=== PATIENT | male | born 1945 | race Caucasian/White ===

== ENCOUNTER 2017-01-01 06:56 | Day surgery (SDC) | payer MEDICARE ==
[2017-01-01] MEDS ORDERED: Lactated Ringers 1,000 ML IV SCH (07:30)
[2017-01-01] MEDS ORDERED: fentaNYL 100 MCG/2 ML SDV ONE (08:03)
[2017-01-01] MEDS ORDERED: Midazolam 1 MG/ML 2 ML SDV ONE (08:03)
[2017-01-01] MEDS ORDERED: Propofol 200 MG/20 ML SDV ONE (08:03)
[2017-01-01 10:45] VITALS: BP 136/63
--- NOTE | 2017-01-01 15:01 | OR ---
DATE OF PROCEDURE: 01/01/2017 PREOPERATIVE DIAGNOSIS: Colon cancer screening. POSTOPERATIVE DIAGNOSIS: Unremarkable colonoscopy. PROCEDURE: Colonoscopy to the cecum. ANESTHESIA: IV anesthesia with monitored anesthesia care. INDICATION: This 71-year-old white male is referred for a colonoscopy for colon cancer screening. He says his last colonoscopic exam was done 11 years ago. I counseled him for the procedure including risks and alternatives, and he gave his informed consent to proceed. DESCRIPTION OF PROCEDURE: The patient was placed in the left lateral decubitus position. IV anesthesia was administered by the Anesthesia Service. Time-out was held. A rectal exam was performed, which was unremarkable. The flexible video Olympus colonoscope was introduced through his anus, up his rectum, and out his colon all way to the cecum. To accomplish this, we did apply some abdominal compression. Once the cecum was reached, the scope was slowly withdrawn, examining the mucosa throughout. No mucosal abnormalities were noted. The scope was retroflexed in the rectum with the distal rectum appearing unremarkable. The scope was straightened and removed. He tolerated the procedure well. Keon Morton MD /[id number]
== END 2017-01-01 10:57 | disposition home or self-care (01) ==
LOC: JP.SDS 06:56
PROVIDERS: ATTEND Surgery
DX: Z12.11 Encounter for screening for malignant neoplasm of colon (principal)
CPT/HCPCS: 45378; J2250; J2704; J3010; J7120

== ENCOUNTER 2018-01-14 09:05 | Day surgery (SDC) | payer MEDICARE ==
[~2018-01-14 09:05] MED LIST: Bacitracin Oint 1 GM U/D Packet ONE
[2018-01-14] MEDS ORDERED: fentaNYL 100 MCG/2 ML SDV ONE (09:34)
[2018-01-14] MEDS ORDERED: Propofol 200 MG/20 ML SDV ONE (09:34)
[2018-01-14] MEDS ORDERED: Midazolam 1 MG/ML 2 ML SDV ONE (09:34)
[2018-01-14] MEDS: Dextrose 5%-Lactated Ringers 1,000 ML IV SCH (09:55)
[2018-01-14] MEDS: ceFAZolin 2 GM in Premix Bag 1 BAG IV ONE (11:33)
[2018-01-14] MEDS: Lidocaine 1% with EPINEPHrine 1:100,000 50 ML MDV ONE (11:55)
[2018-01-14] MEDS: Bupivacaine 0.5% 50 ML MDV ONE (11:55)
[2018-01-14 13:22] VITALS: BP 122/69
--- NOTE | 2018-01-21 12:08 | OR ---
DATE OF PROCEDURE: 01/14/2018 PREOPERATIVE DIAGNOSES: 1. 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 2. Probable atypical keratosis, right catholic. OPERATIVE PROCEDURE: 1. Excision of probable squamous cell carcinoma, right catholic, with layered closure (54006, 58081). 2. Excision of probable atypical keratosis, right catholic, with layered closure (66920, 63771). ANESTHESIA: Local plus IV sedation. INDICATION FOR PROCEDURE: This is a 72-year-old presenting with two lesions in the right catholic. One of these is somewhat anterior to the other. The more anterior of the lesions, has some ulceration with findings highly suggestive of a squamous cell carcinoma. The smaller more posterior lesion is most likely more of an atypical keratosis. The plan is to proceed with excision of both of these. Potential risks of the procedure including bleeding, infection, possible recurrence of the lesions, possible positive margins that might require re-excision were gone over, and the patient wishes to proceed. DETAILS OF PROCEDURE: The patient was taken to the operating room and placed in a supine position. IV sedation was administered, after which the right catholic and surrounding areas were prepped and draped. Both areas were then anesthetized with 1% lidocaine mixed with Marcaine. Initially, the more anterior lesion was excised. This was excised with a margin of normal tissue around it, to provide adequate margins. The lesion length plus margin in this case was 3.5 cm. The incision was then closed with layers of 5-0 Vicryl stitch deep and then 5-0 Prolene skin stitch. The incision length in this case was 4.5 cm. Attention was then taken to the more posterior lesion. A semi-elliptical incision was made, and this measured 1.3 cm in terms of lesion plus margin and it had a closure as per the more anterior lesion, with an incision length of 1.8 cm. Bacitracin was applied. The patient was taken to the recovery room in a satisfactory condition. Gwyn Rodriguez MD /[id number]
== END 2018-01-14 13:50 | disposition home or self-care (01) ==
LOC: JP.SDS 09:05
PROVIDERS: ATTEND Surgery
DX: C44.329 Squamous cell carcinoma of skin of other parts of face (principal); D23.39 Other benign neoplasm of skin of other parts of face; E11.9 Type 2 diabetes mellitus without complications
CPT/HCPCS: 11442; 11644; 12053; 88305; J0690; J2250; J2704; J3010; J3490; J7042

== ENCOUNTER 2018-09-01 06:25 | Day surgery (SDC) | payer MEDICARE ==
[2018-09-01] MEDS ORDERED: Sodium Tetradecyl Sulfate 1% 20 MG/2 ML SDV ONE (06:44)
[2018-09-01] MEDS ORDERED: Lidocaine 1% with EPINEPHrine 1:100,000 50 ML MDV ONE (06:44)
[2018-09-01] MEDS ORDERED: Sodium Chloride 0.9% 10 ML ONE (06:44)
[2018-09-01] MEDS ORDERED: Sodium Chloride 0.9% 1,000 ML IV SCH (07:00)
[2018-09-01] MEDS ORDERED: Propofol 200 MG/20 ML SDV ONE (07:23)
[2018-09-01] MEDS ORDERED: fentaNYL 100 MCG/2 ML SDV ONE (07:24)
[2018-09-01] MEDS ORDERED: Midazolam 1 MG/ML 2 ML SDV ONE (07:24)
[2018-09-01] MEDS ORDERED: Lidocaine 1% w/EPINEPHrine 50 ML, Sodium Bicarbonate 5 MEQ in Sodium Chloride 0.9% 950 ML INJECT SCH (07:45)
[2018-09-01] MEDS ORDERED: Sodium Chloride 0.9% 10 ML SDV FLUSH ONE (08:16)
[2018-09-01 09:33] VITALS: BP 131/68
--- NOTE | 2018-09-02 08:10 | OR ---
DATE OF PROCEDURE: 09/01/2018 PROCEDURES: 1. Radiofrequency ablation of left greater saphenous vein. 2. Sclerotherapy of left leg, multiple. 3. Sclerotherapy of right leg, multiple. 4. Compression wrap to left leg, two stages, 20 mmHg pressure (81710). 5. Compression wrap to right leg, two stages, 20 mmHg pressure. PREOPERATIVE DIAGNOSES: 1. Venous insufficiency with inflammation and pain. 2. Lipodermatosclerosis. POSTOPERATIVE DIAGNOSES: 1. Venous insufficiency with inflammation and pain. 2. Lipodermatosclerosis. SURGEON: Eliud Steele MD RISKS: Risks, benefits, alternatives, and limitations including, but not limited to infection, bleeding, and perforation were explained to the patient, who wished to proceed. We also discussed DVT formation, chronic wounds, chronic pain, pigmentation, and other risks not listed here. PROCEDURE IN DETAIL: The patient was placed in supine position. The left LSV was addressed first. Due to its small size and tortuosity, this was not able to be radiofrequency ablated today, nor was the right LSV. Attention was then turned to the left greater saphenous vein, which also showed significant tortuosity. However, at the superior part, the skin was able to be anesthetized with lidocaine. A ricky was created in the skin and a stylet was able to be introduced. The tumescent fluid was injected in a 1-cm jacket around this, and the proximal aspect was able to be ablated without difficulty. Direct pressure was held for 10 minutes. Sclerotherapy was then performed of left and right legs using 0.33% sodium tetradecyl, 5 on the right and 6 on the left. Two-layer two-stage compression wrapping was then performed [id number] gradient. The patient tolerated the procedure well. Eliud Steele MD /[id number]
== END 2018-09-01 09:55 | disposition home or self-care (01) ==
LOC: JP.SDS 06:25
PROVIDERS: ATTEND Surgery
DX: I83.12 Varicose veins of left lower extremity with inflammation (principal); I83.11 Varicose veins of right lower extremity with inflammation; E03.9 Hypothyroidism, unspecified; E10.21 Type 1 diabetes mellitus with diabetic nephropathy; E10.39 Type 1 diabetes mellitus with other diabetic ophthalmic complication; H42 Glaucoma in diseases classified elsewhere; M19.90 Unspecified osteoarthritis, unspecified site; Z87.891 Personal history of nicotine dependence; Z79.82 Long term (current) use of aspirin; Z79.899 Other long term (current) drug therapy
CPT/HCPCS: 36470; 36475; J1642; J2250; J2704; J3010; J7030; J3490

== ENCOUNTER 2020-09-06 07:16 | Day surgery (SDC) | payer MEDICARE ==
[~2020-09-06 07:16] MED LIST changes: +Bupivacaine 0.5% 50 ML MDV ONE; +Lidocaine 1% with EPINEPHrine 1:100,000 50 ML MDV ONE; +Propofol 200 MG/20 ML SDV ONE; +fentaNYL 100 MCG/2 ML SDV ONE
[2020-09-06] MEDS ORDERED: Dextrose 5%-Lactated Ringers 1,000 ML IV SCH (08:45)
[2020-09-06] MEDS ORDERED: Linezolid 600 MG in Premix Bag 1 BAG IV ONE (09:00)
[2020-09-06 10:52] VITALS: BP 130/73; PULSE 55
--- NOTE | 2020-09-22 13:00 | OR ---
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 OPERATIVE PROCEDURE: Wide re-excision of melanoma in front of left ear ([id number], 55612). ANESTHESIA: Local plus IV sedation. INDICATION FOR PROCEDURE: The patient is status post excision of a nodular lesion in front of the left ear. This came back showing, amongst other pathology, a 0.3 mm depth invasive melanoma. Given this, he is to undergo a 1 cm margin re-excision. Potential risks including bleeding, infection, possible local or distant recurrence of the tumor as well as possible involved margins on the final pathology that might require a secondary re-excision were gone over, and the patient and wished to proceed. DETAILS OF PROCEDURE: The patient was taken to the operating room and placed in a supine position with the head turned toward the right. The area around the previous excision site in front of the left ear was then prepped and draped and anesthetized with 1% lidocaine mixed with Marcaine. 1 cm rogers were placed, maintaining at least 1 cm margin from all components of the previous incision, and an elliptical incision maintaining that 1 cm margin in all dimensions was made and carried down through the skin and subcutaneous tissue down to the level of underlying fascia. The deep margin appeared to be clean, and care was taken to avoid going deeper than what might result in injury to the facial nerve and/or its branches. The lesion was removed, the anterior aspect of the incision marked with a suture, and specimen delivered from the field. The deeper soft tissue was then approximated with some 4-0 Vicryl stitch and the skin with a 5-0 Prolene skin stitch. Both incision length, and by definition, lesion plus margin lengths were 6 cm. Gwyn Rodriguez MD /[id number]
== END 2020-09-06 11:15 | disposition home or self-care (01) ==
LOC: JP.SDS 07:16
PROVIDERS: ATTEND Surgery
DX: C43.22 Malignant melanoma of left ear and external auricular canal (principal); E10.9 Type 1 diabetes mellitus without complications; E03.9 Hypothyroidism, unspecified
CPT/HCPCS: 11646; 12053; 88305; 88341; 88342; 88360; J2020; J2704; J3010; J3490; J7121

== ENCOUNTER 2024-12-10 12:56 | Emergency (ER) | payer MEDICARE ==
[2024-12-10 14:55] LABS: BASOPHILS ABSOLUTE AUTO 0.04 K/uL (0.00-0.10); BASOPHILS PERCENT AUTO 0.7 % (0.1-1.3); EOSINOPHILS ABSOLUTE AUTO 0.06 K/uL (0.00-0.40); EOSINOPHILS PERCENT AUTO 1.0 % (0.0-5.4); IMMATURE GRAN ABSOLUTE AUTO 0.04 K/uL (0.00-0.23); IMMATURE GRAN PERCENT AUTO 0.7 % (0.0-0.7); LYMPHOCYTES ABSOLUTE AUTO 0.73 K/uL (0.8-3.3); LYMPHOCYTES PERCENT AUTO 11.9 % (11.4-47.7); MONOCYTES ABSOLUTE AUTO 0.91 K/uL (0.20-0.90); MONOCYTES PERCENT AUTO 14.9 % (3.3-12.6); NEUTROPHILS ABSOLUTE AUTO 4.34 K/uL (1.0-7.6); NEUTROPHILS PERCENT AUTO 70.8 % (40.0-78.1); PLATELET COUNT,PLT 258 K/uL (130-375); RED BLOOD CELL COUNT 3.66 M/uL (4.14-5.76); WHITE BLOOD CELL COUNT,WBC 6.1 K/uL (3.2-11.0)
[2024-12-10 15:16] LABS: A/G RATIO 1.1 (1.2-2.2); ALANINE AMINOTRANSFERASE,ALT 35 U/L (12-78); ASPARTATE AMNIOTRANSFERASE,AST 23 U/L (15-37); BILIRUBIN TOTAL 0.9 mg/dL (0.2-1.0); BLOOD UREA NITROGEN,BUN 18 mg/dL (7-18); CARBON DIOXIDE,CO2 33 mmol/L (21-32); CHLORIDE,CL 93 mmol/L (100-108); CREATININE 0.9 mg/dL (0.8-1.3); EST CRCL DRUG DOSING (CG) 65.46 mL/min; ESTIMATED GFR 86 mL/min (>60); GLUCOSE RANDOM 256 mg/dL (74-106); POTASSIUM,K 3.6 mmol/L (3.6-5.2); PROTEIN TOTAL,TP 6.8 g/dL (6.4-8.2); SODIUM,NA 129 mmol/L (140-148)
[2024-12-10] MEDS: Iopamidol 612 MG/ML 100 ML Bottle IV ONE (16:07)
[2024-12-10] MEDS: Sodium Chloride 0.9% 10 ML Syringe FLUSH ONE (16:08)
[2024-12-10 16:15] LABS: APPEARANCE,URINE CLEAR (CLEAR); GLUCOSE,URINE 250 mg/dL (NEGATIVE); OCCULT BLOOD,URINE NEGATIVE (NEGATIVE)
[2024-12-10 16:26] LABS: SQUAMOUS EPITHELIAL CELLS,UR NOT SEEN /HPF; UROTHELIAL CELLS,URINE NOT SEEN /HPF
[2024-12-10 17:46] VITALS: BP 178/87; PULSE 70
== END 2024-12-10 18:30 | disposition home or self-care (01) ==
LOC: JP.ED 12:56
DX: R33.9 Retention of urine, unspecified (principal); E10.40 Type 1 diabetes mellitus with diabetic neuropathy, unspecified; Z79.82 Long term (current) use of aspirin; Z79.899 Other long term (current) drug therapy; Z79.4 Long term (current) use of insulin; Z79.890 Hormone replacement therapy
CPT/HCPCS: 36415; 51702; 51798; 74177; 80053; 81001; 85025; 99284; Q9967

== ENCOUNTER 2024-12-13 16:36 | Emergency (ER) | payer MEDICARE ==
[2024-12-13 17:33] LABS: BASOPHILS ABSOLUTE AUTO 0.05 K/uL (0.00-0.10); BASOPHILS PERCENT AUTO 0.5 % (0.1-1.3); EOSINOPHILS ABSOLUTE AUTO 0.06 K/uL (0.00-0.40); EOSINOPHILS PERCENT AUTO 0.6 % (0.0-5.4); IMMATURE GRAN ABSOLUTE AUTO 0.10 K/uL (0.00-0.23); IMMATURE GRAN PERCENT AUTO 1.0 % (0.0-0.7); LYMPHOCYTES ABSOLUTE AUTO 0.56 K/uL (0.8-3.3); LYMPHOCYTES PERCENT AUTO 5.5 % (11.4-47.7); MONOCYTES ABSOLUTE AUTO 1.14 K/uL (0.20-0.90); MONOCYTES PERCENT AUTO 11.3 % (3.3-12.6); NEUTROPHILS ABSOLUTE AUTO 8.22 K/uL (1.0-7.6); NEUTROPHILS PERCENT AUTO 81.1 % (40.0-78.1); PLATELET COUNT,PLT 269 K/uL (130-375); RED BLOOD CELL COUNT 3.50 M/uL (4.14-5.76); WHITE BLOOD CELL COUNT,WBC 10.1 K/uL (3.2-11.0)
[2024-12-13 17:53] LABS: A/G RATIO 1.1 (1.2-2.2); ALANINE AMINOTRANSFERASE,ALT 29 U/L (12-78); ASPARTATE AMNIOTRANSFERASE,AST 18 U/L (15-37); BILIRUBIN TOTAL 1.2 mg/dL (0.2-1.0); BLOOD UREA NITROGEN,BUN 11 mg/dL (7-18); CARBON DIOXIDE,CO2 28 mmol/L (21-32); CHLORIDE,CL 86 mmol/L (100-108); CREATININE 0.9 mg/dL (0.8-1.3); EST CRCL DRUG DOSING (CG) 65.46 mL/min; ESTIMATED GFR 86 mL/min (>60); GLUCOSE RANDOM 234 mg/dL (74-106); POTASSIUM,K 4.3 mmol/L (3.6-5.2); PROTEIN TOTAL,TP 6.8 g/dL (6.4-8.2); SODIUM,NA 122 mmol/L (140-148)
[2024-12-13] MEDS: Magnesium Citrate Solution 296 ML Bottle PO ONE (18:37)
[2024-12-13] MEDS: Na Phos,M-B/Na Phos,DI-B 60 ML, Mineral Oil 50 ML, Docusate Sodium 400 MG, Magnesium Ci... RECTAL ONE (20:56)
[2024-12-13 20:58] VITALS: BP 137/70; PULSE 86
[2024-12-13] MEDS: Magnesium Citrate Solution 296 ML Bottle ONE (21:33)
== END 2024-12-13 22:06 | disposition home or self-care (01) ==
LOC: JP.ED 16:36
DX: K59.04 Chronic idiopathic constipation (principal); E10.9 Type 1 diabetes mellitus without complications; Z79.82 Long term (current) use of aspirin; Z79.4 Long term (current) use of insulin; Z79.890 Hormone replacement therapy; Z79.899 Other long term (current) drug therapy; Z87.891 Personal history of nicotine dependence; Z90.49 Acquired absence of other specified parts of digestive tract
CPT/HCPCS: 36415; 72100; 74019; 80053; 82947; 84443; 85025; 86140; 99283; A9270

== ENCOUNTER 2024-12-16 22:15 | Inpatient (IN) | payer MEDICARE ==
[2024-12-16 23:11] LABS: BASOPHILS ABSOLUTE AUTO 0.05 K/uL (0.00-0.10); BASOPHILS PERCENT AUTO 0.3 % (0.1-1.3); EOSINOPHILS ABSOLUTE AUTO 0.00 K/uL (0.00-0.40); EOSINOPHILS PERCENT AUTO 0.0 % (0.0-5.4); IMMATURE GRAN ABSOLUTE AUTO 0.15 K/uL (0.00-0.23); IMMATURE GRAN PERCENT AUTO 0.8 % (0.0-0.7); LYMPHOCYTES ABSOLUTE AUTO 0.18 K/uL (0.8-3.3); LYMPHOCYTES PERCENT AUTO 0.9 % (11.4-47.7); MONOCYTES ABSOLUTE AUTO 1.79 K/uL (0.20-0.90); MONOCYTES PERCENT AUTO 9.4 % (3.3-12.6); NEUTROPHILS ABSOLUTE AUTO 16.88 K/uL (1.0-7.6); NEUTROPHILS PERCENT AUTO 88.6 % (40.0-78.1); PLATELET COUNT,PLT 292 K/uL (130-375); RED BLOOD CELL COUNT 3.48 M/uL (4.14-5.76); WHITE BLOOD CELL COUNT,WBC 19.1 K/uL (3.2-11.0)
[2024-12-16 23:22] LABS: APPEARANCE,URINE CLOUDY (CLEAR); GLUCOSE,URINE 500 mg/dL (NEGATIVE); OCCULT BLOOD,URINE MODERATE (NEGATIVE)
[2024-12-16 23:23] LABS: SQUAMOUS EPITHELIAL CELLS,UR NOT SEEN /HPF; UROTHELIAL CELLS,URINE NOT SEEN /HPF
[2024-12-16 23:32] LABS: A/G RATIO 0.9 (1.2-2.2); ALANINE AMINOTRANSFERASE,ALT 27 U/L (12-78); ASPARTATE AMNIOTRANSFERASE,AST 16 U/L (15-37); BILIRUBIN TOTAL 1.2 mg/dL (0.2-1.0); BLOOD UREA NITROGEN,BUN 12 mg/dL (7-18); CARBON DIOXIDE,CO2 28 mmol/L (21-32); CHLORIDE,CL 87 mmol/L (100-108); CREATININE 1.0 mg/dL (0.8-1.3); EST CRCL DRUG DOSING (CG) 58.92 mL/min; ESTIMATED GFR 76 mL/min (>60); GLUCOSE RANDOM 353 mg/dL (74-106); POTASSIUM,K 4.1 mmol/L (3.6-5.2); PROTEIN TOTAL,TP 6.8 g/dL (6.4-8.2); SODIUM,NA 123 mmol/L (140-148)
[2024-12-17] MEDS: Lidocaine 1% 2 ML ONE (00:22)
[2024-12-17] MEDS: Water For Injection, Sterile 20 ML ONE (00:24)
[2024-12-17] MEDS ORDERED: Ondansetron 4 MG Tab.DIS PO PRN (04:47)
[2024-12-17] MEDS ORDERED: 50% Dextrose in Water 50 ML Syringe IVPUSH PRN (04:47)
[2024-12-17] MEDS ORDERED: Insulin Lispro 100 Unit/ML 3 ML KwikPen SUBCUT SCH ×2 (04:47→08:00)
[2024-12-17 05:56] LABS: PLATELET COUNT,PLT 327.0 K/uL (130-375); RED BLOOD CELL COUNT 3.81 M/uL (4.14-5.76); WHITE BLOOD CELL COUNT,WBC 18.7 K/uL (3.2-11.0)
[2024-12-17 06:15] LABS: BLOOD UREA NITROGEN,BUN 11.0 mg/dL (7-18); CARBON DIOXIDE,CO2 27.0 mmol/L (21-32); CHLORIDE,CL 91.0 mmol/L (100-108); CREATININE 1.0 mg/dL (0.8-1.3); EST CRCL DRUG DOSING (CG) 58.92 mL/min; ESTIMATED GFR 76.0 mL/min (>60); GLUCOSE RANDOM 346.0 mg/dL (74-106); POTASSIUM,K 5.0 mmol/L (3.6-5.2); SODIUM,NA 128.0 mmol/L (140-148)
[2024-12-17] MEDS: Insulin Lispro 100 Unit/ML 3 ML KwikPen SUBCUT SCH ×2 (08:13→17:04)
[2024-12-17] MEDS: Insulin Glargine,Human Rec. Analog 100 Units/ML 3 ML Pen SUBCUT SCH (21:10)
[2024-12-18 05:44] LABS: PLATELET COUNT,PLT 288.0 K/uL (130-375); RED BLOOD CELL COUNT 3.37 M/uL (4.14-5.76); WHITE BLOOD CELL COUNT,WBC 16.3 K/uL (3.2-11.0)
[2024-12-18 06:01] LABS: BLOOD UREA NITROGEN,BUN 18.0 mg/dL (7-18); CARBON DIOXIDE,CO2 29.0 mmol/L (21-32); CHLORIDE,CL 95.0 mmol/L (100-108); CREATININE 0.9 mg/dL (0.8-1.3); EST CRCL DRUG DOSING (CG) 65.46 mL/min; ESTIMATED GFR 86.0 mL/min (>60); GLUCOSE RANDOM 222.0 mg/dL (74-106); POTASSIUM,K 4.0 mmol/L (3.6-5.2); SODIUM,NA 131.0 mmol/L (140-148)
[2024-12-18 11:37] VITALS: BP 136/76; PULSE 87
== END 2024-12-18 14:05 | disposition home or self-care (01) | DRG 690 ==
LOC: JP.ED 22:15 → JP.ICU 12-17 03:59
PROVIDERS: ADMIT Internal Medicine; ATTEND Student in an Organized Health Care Education/Training Program
DX: N39.0 Urinary tract infection, site not specified (principal); E87.1 Hypo-osmolality and hyponatremia; H40.9 Unspecified glaucoma; H54.7 Unspecified visual loss; E03.9 Hypothyroidism, unspecified; E86.0 Dehydration; M19.90 Unspecified osteoarthritis, unspecified site; E11.40 Type 2 diabetes mellitus with diabetic neuropathy, unspecified; Z98.890 Other specified postprocedural states; Z90.49 Acquired absence of other specified parts of digestive tract; Z79.4 Long term (current) use of insulin; Z79.899 Other long term (current) drug therapy; Z98.49 Cataract extraction status, unspecified eye; Z79.82 Long term (current) use of aspirin; Z87.891 Personal history of nicotine dependence
CPT/HCPCS: 36415; 51701; 71046; 71046-26; 80048; 80053; 81001; 82947; 83605; 84484; 85025; 85027; 87040; 87086; 87088; 87186; 93005; 96360; 96372; 99222; 99232; 99238; 99285-25; A9270-GY; C1758; J0696; J1815-GY; J2003; J2470; J7030

== ENCOUNTER 2024-12-22 08:06 | Emergency (ER) | payer MEDICARE ==
[2024-12-22 09:06] LABS: BASOPHILS ABSOLUTE AUTO 0.09 K/uL (0.00-0.10); BASOPHILS PERCENT AUTO 1.1 % (0.1-1.3); EOSINOPHILS ABSOLUTE AUTO 0.05 K/uL (0.00-0.40); EOSINOPHILS PERCENT AUTO 0.6 % (0.0-5.4); IMMATURE GRAN ABSOLUTE AUTO 0.32 K/uL (0.00-0.23); IMMATURE GRAN PERCENT AUTO 3.8 % (0.0-0.7); LYMPHOCYTES ABSOLUTE AUTO 0.59 K/uL (0.8-3.3); LYMPHOCYTES PERCENT AUTO 7.0 % (11.4-47.7); MONOCYTES ABSOLUTE AUTO 0.91 K/uL (0.20-0.90); MONOCYTES PERCENT AUTO 10.8 % (3.3-12.6); NEUTROPHILS ABSOLUTE AUTO 6.50 K/uL (1.0-7.6); NEUTROPHILS PERCENT AUTO 76.7 % (40.0-78.1); PLATELET COUNT,PLT 416 K/uL (130-375); RED BLOOD CELL COUNT 3.61 M/uL (4.14-5.76); WHITE BLOOD CELL COUNT,WBC 8.5 K/uL (3.2-11.0)
[2024-12-22 09:15] LABS: APPEARANCE,URINE CLEAR (CLEAR); GLUCOSE,URINE 500 mg/dL (NEGATIVE); OCCULT BLOOD,URINE TRACE-INTACT (NEGATIVE)
[2024-12-22 09:30] LABS: A/G RATIO 0.9 (1.2-2.2); ALANINE AMINOTRANSFERASE,ALT 31 U/L (12-78); ASPARTATE AMNIOTRANSFERASE,AST 15 U/L (15-37); BILIRUBIN TOTAL 0.8 mg/dL (0.2-1.0); BLOOD UREA NITROGEN,BUN 11 mg/dL (7-18); CARBON DIOXIDE,CO2 30 mmol/L (21-32); CHLORIDE,CL 87 mmol/L (100-108); CREATININE 0.8 mg/dL (0.8-1.3); EST CRCL DRUG DOSING (CG) 73.65 mL/min; ESTIMATED GFR 89 mL/min (>60); GLUCOSE RANDOM 349 mg/dL (74-106); POTASSIUM,K 4.4 mmol/L (3.6-5.2); PROTEIN TOTAL,TP 7.4 g/dL (6.4-8.2); SODIUM,NA 124 mmol/L (140-148)
[2024-12-22 09:30] LABS: SQUAMOUS EPITHELIAL CELLS,UR NOT SEEN /HPF; UROTHELIAL CELLS,URINE NOT SEEN /HPF
[2024-12-22] MEDS: Insulin Regular, Human 100 Units/ML 10 ML Vial IVPUSH ONE (09:53)
[2024-12-22 10:04] LABS: PHOSPHORUS 3.1 mg/dL (2.5-4.9)
[2024-12-22 10:07] LABS: BASE EXCESS ARTERIAL 1.9 mm/L; BICARBONATE,ARTERIAL 25.1 mmol/L (22.0-26.0); O2 SATURATION ARTERIAL 97.2 % (95.0-98.0); OXYHEMOGLOBIN 94.9 %; PCO2 ARTERIAL 35.9 mmHg (35.0-42.0); PO2 ARTERIAL 90.9 mmHg (75.0-100.0); TOTAL HEMOGLOBIN 13.0 g/dL (13.5-18.0)
[2024-12-22 11:40] VITALS: BP 142/74; PULSE 70
[2024-12-22 12:53] LABS: BLOOD UREA NITROGEN,BUN 10.0 mg/dL (7-18); CARBON DIOXIDE,CO2 30.0 mmol/L (21-32); CHLORIDE,CL 90.0 mmol/L (100-108); CREATININE 0.8 mg/dL (0.8-1.3); EST CRCL DRUG DOSING (CG) 73.65 mL/min; ESTIMATED GFR 89.0 mL/min (>60); GLUCOSE RANDOM 261.0 mg/dL (74-106); POTASSIUM,K 4.2 mmol/L (3.6-5.2); SODIUM,NA 129.0 mmol/L (140-148)
== END 2024-12-22 14:00 | disposition home or self-care (01) ==
LOC: JP.ED 08:06
DX: M47.816 Spondylosis without myelopathy or radiculopathy, lumbar region (principal); E10.65 Type 1 diabetes mellitus with hyperglycemia; E87.1 Hypo-osmolality and hyponatremia; E10.42 Type 1 diabetes mellitus with diabetic polyneuropathy; E03.9 Hypothyroidism, unspecified; Z90.49 Acquired absence of other specified parts of digestive tract; Z79.4 Long term (current) use of insulin; Z79.82 Long term (current) use of aspirin; Z79.890 Hormone replacement therapy; Z79.899 Other long term (current) drug therapy
CPT/HCPCS: 36415; 36600; 80048; 80053; 81001; 82803; 82947; 83605; 83735; 84100; 85025; 93005; 93010; 96360; 96361; 99284; 99285; A9270; J7030